=== PATIENT | female | born 1955 | race Caucasian/White ===

== ENCOUNTER 2019-08-13 09:55 | Outpatient (CLI) | payer OTHER ==
--- NOTE | 2019-08-13 11:30 | RAD ---
FIVE VIEWS CERVICAL SPINE: HISTORY: Neck pain x10 years. COMPARISON: None. FINDINGS: In the AP projection, multilevel facet arthropathy. No malalignment. In the lateral neutral position and in the swimmer's view, there is straightening of normal cervical lordosis. Predental space is normal. Cervical spine vertebral body height is maintained. No fracture. Straightening of normal cerv ical lordosis may be due to patient position or muscle spasm. Severe loss of disc space height at C5-C6 and C6-C7. Spondylolisthesis: C4-C5: Neutral demonstrates 2.1 mm of anterolisthesis. Action demonstrates 2.4 mm of anterolisthesis. Extension demonstrates 1.7 mm of anterolisthesis. No additional levels of spondylolisthesis. IMPRESSION: 1. Significant degenerative disc disease at C5-C6 and C6-C7. 2. Grade 1 anterolisthesis of C4 upon C5. Transcribed Date/Time: 08/13/2019 11:38 AM
== END 2019-08-13 09:56 | disposition home or self-care (01) ==
LOC: BICRAD 09:55
PROVIDERS: ATTEND Neurological Surgery
DX: M50.20 Other cervical disc displacement, unspecified cervical region (principal); M50.322 Other cervical disc degeneration at C5-C6 level; M43.12 Spondylolisthesis, cervical region
CPT/HCPCS: 72050